=== PATIENT | male | born 2000 | race Two or more races ===

== ENCOUNTER 2025-03-13 18:10 | Emergency (ER) | payer SELFPAY | END 2025-03-13 20:09 | disposition home or self-care (01) | LOC: MW.ED 18:10 | DX: S56.912A Strain of unspecified muscles, fascia and tendons at forearm level, left arm, initial encounter (principal); F17.200 Nicotine dependence, unspecified, uncomplicated; X58.XXXA Exposure to other specified factors, initial encounter | CPT/HCPCS: 73110-26-LT; 73110-LT; 99283 ==